=== PATIENT | male | born 1965 | race Caucasian/White ===

== ENCOUNTER → 2017-01-04 | Outpatient (CLI) | payer OTHER | END | disposition home or self-care (01) | LOC: GMAM 12:59 | PROVIDERS: ATTEND Family Medicine | DX: Z00.00 Encounter for general adult medical examination without abnormal findings (principal) ==

== ENCOUNTER → 2017-01-04 | Outpatient (CLI) | payer OTHER ==
--- NOTE | 2017-01-07 06:53 | US ---
EXAM DESCRIPTION: Abdomen,Complete CLINICAL HISTORY: Left lower quadrant pain COMPARISON: None TECHNIQUE: Real-time sonographic images of the abdomen are obtained FINDINGS: Pancreas is unremarkable. The right lobe of the liver measures 15.7cm. The liver is diffusely homogeneous and normal in echogenicity. No focal hepatic mass is seen. The gallbladder is normally distended and free of abnormal internal echogenicities. No gallbladder wall thickening or pericholecystic fluid is seen. The common bile duct measures three mm in greatest diameter. The right kidney measures 10.0 cm. The left kidney measures 11.0 cm. Both kidneys show normal renal cortical echogenicity. No hydronephrosis is seen. The spleen measures 11.2 cm. Visualized IVC and abdominal aorta are within normal limits. IMPRESSION: Unremarkable abdominal ultrasound Electronically signed by: Michael Cordero MD 01/07/2017 6:52 AM CDT
== END | disposition home or self-care (01) ==
LOC: US 09:18
PROVIDERS: ATTEND Nurse Practitioner Acute Care
DX: R10.32 Left lower quadrant pain (principal)